=== PATIENT | female | born 1955 ===

== ENCOUNTER 2017-03-03 15:34 | Observation (INO) | payer MEDICARE, MEDICAID ==
--- NOTE | 2017-03-03 16:17 | C.PDOC ---
History Of Present Illness 61F c/o chest pain for the last 3 weeks, both at rest and with exertion. she also feels some pain in her upper back. she has a hx of back problems and was at PT today for her back when she developed pain and they suggested she come here. pmh htn and hlp. Time Seen by Provider: 03/03/17 15:55 Chief Complaint (Nursing): Palpitations Past Medical History Vital Signs: Last Vital Signs Temp 98.2 F 03/03/17 16:14 Pulse 78 03/03/17 16:14 Resp 18 03/03/17 16:14 BP 161/88 H 03/03/17 16:14 Pulse Ox 98 03/03/17 16:18 - Medical History PMH: Anxiety, Depression, HTN, Hypercholesterolemia, Sleep Apnea (USES C PAP) Surgical History: Appendectomy, Cholecystectomy - [facility] Procedures COLONOSCOPY (03/05/15) Family History: States: [place] (father) - Social History Hx Alcohol Use: No Hx Substance Use: No - Immunization History Hx Tetanus Toxoid Vaccination: No Hx Influenza Vaccination: No Hx Pneumococcal Vaccination: No Review Of Systems Except As Marked, All Systems Reviewed And Found Negative. Constitutional: Positive for: Fever (subjective 2 days ago ). Negative for: Malaise Cardiovascular: Positive for: Chest Pain, Palpitations, Light Headedness Respiratory: Negative for: Cough, Shortness of Breath, Hemoptysis Gastrointestinal: Negative for: Nausea, Vomiting, Abdominal Pain Musculoskeletal: Positive for: Back Pain Neurological: Negative for: Weakness, Numbness, Headache Physical Exam - Physical Exam Appears: Well, Non-toxic, No Acute Distress Skin: Warm, Dry Head: Atraumatic Eye(s): bilateral: PERRL Oral Mucosa: Moist Neck: Normal ROM Chest: Tenderness (reproducible pain w palp over lower sternum) Cardiovascular: Rhythm Regular, No Murmur Respiratory: No Decreased Breath Sounds, No Accessory Muscle Use, No Rales, No Rhonchi, No Wheezing Gastrointestinal/Abdominal: Soft, No Tenderness Back: Paraspinal Tenderness (thoracic) Extremity: No Calf Tenderness, No Swelling Pulses: Left Radial: Normal, Right Radial: Normal Neurological/Psych: Oriented x3, Normal Motor, Normal Sensation, Other (no focal deficits) ED Course And Treatment - Laboratory Results Result Diagrams: 03/03/17 16:25 03/03/17 16:25 O2 Sat by Pulse Oximetry: 98 Medical Decision Making Medical Decision Making: ecg- nsr 79, nl axis, nl int, no acute ischemia HISTORY: cp COMPARISON: Images from chest x-ray performed 06/12/12 TECHNIQUE: Chest PA and lateral FINDINGS: Emanation limited by habitus. LUNGS: No focal consolidation. Please note that chest x-ray has limited sensitivity for the detection of pulmonary masses. PLEURA: No significant pleural effusion identified. No definite pneumothorax . CARDIOVASCULAR: The cardiomediastinal silhouette appears within normal limits of size. OSSEOUS STRUCTURES: Mild degenerative changes of the spine. VISUALIZED UPPER ABDOMEN: Right upper quadrant surgical clips. OTHER FINDINGS: None. IMPRESSION: No focal consolidation, significant pleural effusion, or definite pneumothorax identified. Disposition - Disposition Disposition: HOSPITALIZED Disposition Time: 17:47 Condition: STABLE - Clinical Impression Clinical Impression: Palpitations, Chest pain
[2017-03-03 16:31] LABS: BASO % 0.4 % (0.0-2.0); EOS # 0.2 K/uL (0.0-0.7); EOS % 2.4 % (0.0-4.0); HEMATOCRIT 39.3 % (34.0-47.0); LYMPH # 1.6 K/uL (1.0-4.3); MEAN CELL VOLUME 91.1 fL (81.0-99.0); MEAN CORPUSCULAR HEMOGLOBIN 30.3 pg (27.0-31.0); MEAN CORPUSCULAR HGB CONC 33.3 g/dL (33.0-37.0); MEAN PLATELET VOLUME 8.6 fL (7.2-11.7); MONO # 0.7 K/uL (0.0-0.8); MONO % 11.1 % (0.0-10.0); RED CELL DISTRIBUTION WIDTH 12.5 % (11.5-14.5); WHITE BLOOD COUNT 6.5 K/uL (4.8-10.8)
[2017-03-03 16:37] LABS: CHLORIDE 101 mmol/L (98-107); SODIUM 138 mmol/L (132-148)
[2017-03-03 16:39] LABS: GFR AFRICAN-AMERICAN > 60
[2017-03-03 16:40] LABS: ALB/GLOB RATIO 1.2 (1.0-2.1); ALKALINE PHOSPHATASE 97 U/L (38-126); ALT/SGPT 31 U/L (9-52); AST/SGOT 26 U/L (14-36); BILIRUBIN,TOTAL 0.7 mg/dL (0.2-1.3); BLOOD UREA NITROGEN 10 mg/dL (7-17); CALCIUM 9.1 mg/dl (8.6-10.4); CARBON DIOXIDE 29 mmol/L (22-30); GLUCOSE,RANDOM 110 mg/dL (65-105); TOTAL PROTEIN 7.6 g/dL (6.3-8.3)
--- NOTE | 2017-03-03 16:40 | RAD ---
HISTORY: cp COMPARISON: Images from chest x-ray performed 06/12/12 TECHNIQUE: Chest PA and lateral FINDINGS: Emanation limited by habitus. LUNGS: No focal consolidation. Please note that chest x-ray has limited sensitivity for the detection of pulmonary masses. PLEURA: No significant pleural effusion identified. No definite pneumothorax . CARDIOVASCULAR: The cardiomediastinal silhouette appears within normal limits of size. OSSEOUS STRUCTURES: Mild degenerative changes of the spine. VISUALIZED UPPER ABDOMEN: Right upper quadrant surgical clips. OTHER FINDINGS: None. IMPRESSION: No focal consolidation, significant pleural effusion, or definite pneumothorax identified.
--- NOTE | 2017-03-03 18:46 | CP.PCM.HP ---
<Jose Biggs - Last Filed: 03/03/17 18:56> History of Present Illness - History of Present Illness History of Present Illness: This is a 61 yo female with pmh htn, depression, allergies, vertigo presenting with cp x 3 days. It started 3 days ago, sub sternal, no radiation. Pt is not a very good historian and could not say what she was doing at the time. It occurred again day prior to eval as she was walking to supermarket. She had some dizziness/sob. It went away after 3 mins. Today it started again, cannot say when. Happened before 3 months ago with some left arm numbness. Nothing better or worse. Took vitamin c at home along with bp meds. No trauma or fall. Reproducible to palpation PMH: HTN, depression, allergies, vertigo PSH: appy, cholecystectomy Allergies: NKDA FH: Non contributory Social: denies smoking, drinking, drugs. Born in . Present on Admission - Present on Admission Any Indicators Present on Admission: No History of DVT/PE: No History of Uncontrolled Diabetes: No Urinary Catheter: No Decubitus Ulcer Present: No Review of Systems - Review of Systems All systems: reviewed and no additional remarkable complaints except Review of Systems: negative except as stated in hpi Past Patient History - Infectious Disease Hx of Infectious Diseases: None - Tetanus Immunizations Tetanus Immunization: Unknown - Past Medical History & Family History Past Medical History?: Yes Past Family History: Reviewed and not pertinent - Past Social History Smoking Status: Never Smoked Chewing Tobacco Use: No Cigar Use: No Alcohol: None Drugs: Denies Home Situation {Lives}: Alone Domestic Violence: Negative - CARDIAC Hx Hypercholesterolemia: Yes Hx Hypertension: Yes - PULMONARY Hx Sleep Apnea: Yes (USES C PAP) - NEUROLOGICAL Hx Neurological Disorder: Yes Hx Vertigo: Yes - HEENT Hx HEENT Problems: No - RENAL Hx Chronic Kidney Disease: No - ENDOCRINE/METABOLIC Hx Endocrine Disorders: No - HEMATOLOGICAL/ONCOLOGICAL Hx Blood Disorders: No - INTEGUMENTARY Hx Dermatological Problems: No - MUSCULOSKELETAL/RHEUMATOLOGICAL Hx Musculoskeletal Disorders: Yes Hx Osteoarthritis: Yes - GASTROINTESTINAL Hx Gastrointestinal Disorders: No - GENITOURINARY/GYNECOLOGICAL Hx Genitourinary Disorders: No - PSYCHIATRIC Hx Anxiety: Yes Hx Depression: Yes Hx Substance Use: No - SURGICAL HISTORY Hx Appendectomy: Yes Hx Cholecystectomy: Yes - ANESTHESIA Hx Anesthesia: Yes Hx Anesthesia Reactions: No Hx Malignant Hyperthermia: No Meds Allergies/Adverse Reactions: Allergies Allergy/AdvReac Type Severity Reaction Status Date / Time No Known Allergies Allergy Verified 03/05/15 09:16 Physical Exam - Constitutional Appears: Non-toxic, No Acute Distress - Head Exam Head Exam: ATRAUMATIC, NORMAL INSPECTION, NORMOCEPHALIC - Eye Exam Eye Exam: EOMI - ENT Exam ENT Exam: Mucous Membranes Moist - Neck Exam Neck exam: Positive for: Normal Inspection - Respiratory Exam Respiratory Exam: Clear to Auscultation Bilateral, NORMAL BREATHING PATTERN - Cardiovascular Exam Cardiovascular Exam: +S1, +S2 Additional comments: cp reproducible to palpation - GI/Abdominal Exam GI & Abdominal Exam: Normal Bowel Sounds, Soft. absent: Tenderness - Extremities Exam Extremities exam: Positive for: normal inspection - Back Exam Back exam: NORMAL INSPECTION - Neurological Exam Neurological exam: Alert, Oriented x3 - Psychiatric Exam Psychiatric exam: Normal Affect, Normal Mood - Skin Skin Exam: Dry, Intact, Normal Color, Warm Results - Vital Signs Recent Vital Signs: Last Vital Signs Temp 98.2 F 03/03/17 16:14 Pulse 88 03/03/17 17:56 Resp 16 03/03/17 17:56 BP 155/82 H 03/03/17 17:56 Pulse Ox 99 03/03/17 17:56 - Labs Result Diagrams: 03/03/17 16:25 03/03/17 16:25 Assessment & Plan - Assessment and Plan (Free Text) Assessment: This is a 61 yo female with pmh htn, allergies, vertigo, depression, presenting cp x 3 days 1. cp r/o acs -ekg shows nsr -1st trop negative -repeat trops -likely msk -will give motrin -f/u cta -elevated d dimer -give amlodipine daily -valsartan hctz daily -hgb a1c -lipid profile -continue home statin 2. hx of allergies -continue home fluticasone 3. hx of htn -continue norvasc -continue valsartan/hctz 4. hx of depression -continue aripiprazole -continue fluoxetine -continue doxepin 5. GI/dvt ppx -protonix daily -cardiac diet -heparin sc discussed with dr. sepluveda <Jose Sepulveda - Last Filed: 03/04/17 15:39> Results - Vital Signs Recent Vital Signs: Last Vital Signs Temp 98.8 F 03/04/17 07:25 Pulse 85 03/04/17 07:30 Resp 18 03/04/17 07:25 BP 137/84 03/04/17 07:25 Pulse Ox 97 03/04/17 07:25 - Labs Result Diagrams: 03/04/17 06:23 03/04/17 06:23 Labs: Laboratory Results - last 24 hr 03/03/17 03/03/17 03/04/17 18:48 18:48 00:41 WBC RBC Hgb Hct MCV MCH MCHC RDW Plt Count MPV Neut % (Auto) Lymph % (Auto) [place] % (Auto) Eos % (Auto) Baso % (Auto) Neut # Lymph # [place]christ # Eos # Baso # Sodium Potassium Chloride Carbon Dioxide Anion Gap BUN Creatinine Est GFR ( Amer) Est GFR (Non-Af Amer) Random Glucose Hemoglobin A1c 5.4 Calcium Phosphorus Magnesium Total Bilirubin AST ALT Alkaline Phosphatase Troponin I < 0.0120 Total Protein Albumin Globulin Albumin/Globulin Ratio Triglycerides 79 Cholesterol 159 LDL Cholesterol Direct 56 HDL Cholesterol 64 03/04/17 03/04/17 06:23 06:23 WBC 6.4 RBC 4.53 Hgb 13.9 Hct 41.2 MCV 90.8 MCH 30.6 MCHC 33.7 RDW 12.4 Plt Count 286 MPV 8.6 Neut % (Auto) 64.3 Lymph % (Auto) 23.1 [place]christ % (Auto) 9.7 Eos % (Auto) 2.4 Baso % (Auto) 0.5 Neut # 4.1 Lymph # 1.5 Gilchrist # 0.6 Eos # 0.2 Baso # 0.0 Sodium 137 Potassium 4.0 Chloride 99 Carbon Dioxide 31 H Anion Gap 11 BUN 9 Creatinine 0.7 Est GFR ( Amer) > 60 Est GFR (Non-Af Amer) > 60 Random Glucose 102 Hemoglobin A1c Calcium 9.0 Phosphorus 4.3 Magnesium 2.0 Total Bilirubin 0.9 AST 28 ALT 27 Alkaline Phosphatase 110 Troponin I < 0.0120 Total Protein 7.6 Albumin 4.0 Globulin 3.6 Albumin/Globulin Ratio 1.1 Triglycerides Cholesterol LDL Cholesterol Direct HDL Cholesterol Attending/Attestation - Attestation I have personally seen and examined this patient.: Yes I have fully participated in the care of the patient.: Yes I have reviewed all pertinent clinical information: Yes Notes (Text): 03/04/17 15:38 Patient was seen and examined at bedside with the resident the time of admission Patient complains of chest pain but it is easily reproducible The pain is likely muscular skeletal. However we will admit the patient and do serial troponins to rule out acute coronary syndrome We will also start the patient on Motrin for musculoskeletal pain I discussed the plan of care with the resident and agree with the above history and physical and assessment/plan but the resident
[2017-03-03 18:59] LABS: CHOLESTEROL 159 mg/dL (0-199)
--- NOTE | 2017-03-03 19:32 | CT ---
EXAM: CT Angiography Chest With Intravenous Contrast CLINICAL HISTORY: 61 years old, female; Pain; Chest pain; Type not specified; Additional info: Cp +ddimer TECHNIQUE: Axial computed tomographic angiography images of the chest with intravenous contrast using pulmonary embolism protocol. This CT exam was performed using one or more of the following dose reduction techniques: automated exposure control, adjustment of the mA and/or kV according to patient size, and/or use of iterative reconstruction technique. MIP reconstructed images were created and reviewed. Coronal and sagittal reformatted images were created and reviewed. CONTRAST: 100 mL of VISIPAQUE 320 administered intravenously. EXAM DATE/TIME: Exam ordered 03/03/2017 5:37 PM COMPARISON: No relevant prior studies available. FINDINGS: Pulmonary arteries: The main pulmonary artery measures 3.17 cm which is at the upper limits of normal. No pulmonary embolism. Aorta: No acute findings. No thoracic aortic aneurysm. Lungs: Mosaic perfusion abnormality is noted within the lungs. No mass. Pleural space: Unremarkable. No significant effusion. No pneumothorax. Heart: Unremarkable. No cardiomegaly. No significant pericardial effusion. No evidence of RV dysfunction. Bones/joints: No acute fracture. No dislocation. Soft tissues: Unremarkable. Lymph nodes: Unremarkable. No enlarged lymph nodes. Surgical clips are noted in the gallbladder fossa. The gallbladder has been removed. Scattered colonic diverticula are present. IMPRESSION: 1. No pulmonary embolism 2. Mosaic perfusion abnormality. The finding is nonspecific but can be seen in pulmonary artery hypertension as well as interstitial lung disease or asthma.
[2017-03-04 06:34] LABS: BASO % 0.5 % (0.0-2.0); EOS # 0.2 K/uL (0.0-0.7); EOS % 2.4 % (0.0-4.0); HEMATOCRIT 41.2 % (34.0-47.0); LYMPH # 1.5 K/uL (1.0-4.3); LYMPH % 23.1 % (20.0-40.0); MEAN CELL VOLUME 90.8 fL (81.0-99.0); MEAN CORPUSCULAR HEMOGLOBIN 30.6 pg (27.0-31.0); MEAN CORPUSCULAR HGB CONC 33.7 g/dL (33.0-37.0); MEAN PLATELET VOLUME 8.6 fL (7.2-11.7); MONO # 0.6 K/uL (0.0-0.8); MONO % 9.7 % (0.0-10.0); RED CELL DISTRIBUTION WIDTH 12.4 % (11.5-14.5); WHITE BLOOD COUNT 6.4 K/uL (4.8-10.8)
[2017-03-04 06:40] LABS: CHLORIDE 99 mmol/L (98-107); SODIUM 137 mmol/L (132-148)
[2017-03-04 06:42] LABS: GFR AFRICAN-AMERICAN > 60
[2017-03-04 06:43] LABS: ALB/GLOB RATIO 1.1 (1.0-2.1); ALKALINE PHOSPHATASE 110 U/L (38-126); ALT/SGPT 27 U/L (9-52); AST/SGOT 28 U/L (14-36); BILIRUBIN,TOTAL 0.9 mg/dL (0.2-1.3); BLOOD UREA NITROGEN 9 mg/dL (7-17); CARBON DIOXIDE 31 mmol/L (22-30); GLUCOSE,RANDOM 102 mg/dL (65-105); PHOSPHOROUS 4.3 mg/dL (2.5-4.5); TOTAL PROTEIN 7.6 g/dL (6.3-8.3)
[2017-03-04 07:43] VITALS: PULSE 85
[2017-03-04 08:19] VITALS: BP 137/84; RESP 18; TEMP 98.8; O2SAT 97
[2017-03-04] MEDS ORDERED: ARIPIPRAZOLE 20 MG PO SCH (10:00)
[2017-03-04] MEDS ORDERED: DOXEPIN HCL 25 MG PO SCH (10:00)
[2017-03-04] MEDS ORDERED: Diclofenac Sodium Delayed Release 75 mg EC Tab PO SCH (10:00)
[2017-03-04] MEDS ORDERED: HYDROCHLOROTHIAZIDE PO SCH (10:00)
[2017-03-04] MEDS ORDERED: VALSARTAN PO SCH (10:00)
[2017-03-04] MEDS ORDERED: MECLIZINE HYDROCHLORIDE PO SCH (10:00)
[2017-03-04] MEDS ORDERED: FLUOXETINE HYDROCHLORIDE PO SCH (10:00)
[2017-03-04] MEDS ORDERED: Fluticasone Nasal 50 mcg/Spray NS SCH (10:00)
--- NOTE | 2017-03-04 15:44 | CP.PCM.DIS ---
<Jose Biggs - Last Filed: 03/04/17 15:52> Provider - Provider Date of Admission: 03/03/17 17:48 Attending physician: Jose Sepulveda MD Consults: None Time Spent in preparation of Discharge (in minutes): 45 Hospital Course - Lab Results Lab Results: Most Recent Lab Values WBC 6.4 K/uL (4.8-10.8) 03/04/17 06:23 RBC 4.53 Mil/uL (3.80-5.20) 03/04/17 06:23 Hgb 13.9 g/dL (11.0-16.0) 03/04/17 06:23 Hct 41.2 % (34.0-47.0) 03/04/17 06:23 MCV 90.8 fL (81.0-99.0) 03/04/17 06:23 MCH 30.6 pg (27.0-31.0) 03/04/17 06:23 MCHC 33.7 g/dL (33.0-37.0) 03/04/17 06:23 RDW 12.4 % (11.5-14.5) 03/04/17 06:23 Plt Count 286 K/uL (130-400) 03/04/17 06:23 MPV 8.6 fL (7.2-11.7) 03/04/17 06:23 Neut % (Auto) 64.3 % (50.0-75.0) 03/04/17 06:23 Lymph % (Auto) 23.1 % (20.0-40.0) 03/04/17 06:23 [place] % (Auto) 9.7 % (0.0-10.0) 03/04/17 06:23 Eos % (Auto) 2.4 % (0.0-4.0) 03/04/17 06:23 Baso % (Auto) 0.5 % (0.0-2.0) 03/04/17 06:23 Neut # 4.1 K/uL (1.8-7.0) 03/04/17 06:23 Lymph # 1.5 K/uL (1.0-4.3) 03/04/17 06:23 [place] # 0.6 K/uL (0.0-0.8) 03/04/17 06:23 Eos # 0.2 K/uL (0.0-0.7) 03/04/17 06:23 Baso # 0.0 K/uL (0.0-0.2) 03/04/17 06:23 D-Dimer, Quantitative 347 ng/mlDDU (0-243) H 03/03/17 16:25 Sodium 137 mmol/L (132-148) 03/04/17 06:23 Potassium 4.0 mmol/L (3.6-5.2) 03/04/17 06:23 Chloride 99 mmol/L (98-107) 03/04/17 06:23 Carbon Dioxide 31 mmol/L (22-30) H 03/04/17 06:23 Anion Gap 11 (10-20) 03/04/17 06:23 BUN 9 mg/dL (7-17) 03/04/17 06:23 Creatinine 0.7 MG/DL (0.7-1.2) 03/04/17 06:23 Est GFR ( Amer) > 60 03/04/17 06:23 Est GFR (Non-Af Amer) > 60 03/04/17 06:23 Random Glucose 102 mg/dL (65-105) 03/04/17 06:23 Hemoglobin A1c 5.4 % (4.2-6.5) 03/03/17 18:48 Calcium 9.0 mg/dl (8.6-10.4) 03/04/17 06:23 Phosphorus 4.3 mg/dL (2.5-4.5) 03/04/17 06:23 Magnesium 2.0 mg/dL (1.6-2.3) 03/04/17 06:23 Total Bilirubin 0.9 mg/dL (0.2-1.3) 03/04/17 06:23 AST 28 U/L (14-36) 03/04/17 06:23 ALT 27 U/L (9-52) 03/04/17 06:23 Alkaline Phosphatase 110 U/L (38-126) 03/04/17 06:23 Troponin I < 0.0120 ng/mL (0.00-0.120) 03/04/17 06:23 Total Protein 7.6 g/dL (6.3-8.3) 03/04/17 06:23 Albumin 4.0 g/dL (3.5-5.0) 03/04/17 06:23 Globulin 3.6 gm/dL (2.2-3.9) 03/04/17 06:23 Albumin/Globulin Ratio 1.1 (1.0-2.1) 03/04/17 06:23 Triglycerides 79 mg/dL (0-149) 03/03/17 18:48 Cholesterol 159 mg/dL (0-199) 03/03/17 18:48 LDL Cholesterol Direct 56 mg/dL (0-129) 03/03/17 18:48 HDL Cholesterol 64 mg/dL (30-70) 03/03/17 18:48 - Hospital Course Hospital Course: Attending: Derick Aquino Admit date - 03-03-17 DC date- 03-04-17 Discharge dx 1. Chest pain 2. MSK chest pain 3. Depression 4. allergies 5. htn Discharge condition Stable Procedures none No complications during hospital stay Consults: none HPI: see h/p Lab: see lab data section Hospital course This is a 61 yo female with pmh htn, depression, allergies, vertigo presenting with cp x 3 days. It started 3 days ago, sub sternal, no radiation. Pt is not a very good historian and could not say what she was doing at the time. It occurred again day prior to eval as she was walking to [employer].. She had some dizziness/sob. It went away after 3 mins. Today it started again, cannot say when. Happened before 3 months ago with some left arm numbness. Nothing better or worse. Took vitamin c at home along with bp meds. No trauma or fall. Reproducible to palpation. Pt's trops were negative x 3. EKG showed normal sinus rhythm. CTA was negative for PE. Pt was restarted on home blood pressure and depression meds as well as given heparin for dvt ppx and protonix for gi ppx. Vitals remained stable and her hospital course was uneventful. On day of discharge, pt's chest pain was improved. She denied fevers, chills, vomiting, diarrhea, syncope. Pt needs outpatient stress test. Discharge instructions Please return if condition worsens. Will need outpatient stress test. Resume all home meds. F/u with PMD and photographer helper. Discharge meds 1. meclizine 2. ativan 3. claritin 4. norvasc 5. abilify 6. vitamin d 7. diclofenac 8. doxepin 9. fluoxetine 10. fluticasone 11. gabapentin 12. pataday 13. omeprazole 14. valsartan/hctz - Date & Time of H&P Date of H&P: 03/03/17 Time of H&P: 18:42 Discharge Exam - Head Exam Head Exam: ATRAUMATIC, NORMAL INSPECTION, NORMOCEPHALIC - Eye Exam Eye Exam: EOMI - ENT Exam ENT Exam: Mucous Membranes Moist - Neck Exam Neck exam: Full Rom, Normal Inspection - Respiratory Exam Respiratory Exam: NORMAL BREATHING PATTERN, UNREMARKABLE - Cardiovascular Exam Cardiovascular Exam: +S1, +S2 Additional comments: Chest wall tender to palpation - GI/Abdominal Exam GI & Abdominal Exam: Normal Bowel Sounds - Extremities Exam Extremities exam: full ROM, normal inspection - Back Exam Back exam: NORMAL INSPECTION - Neurological Exam Neurological exam: Alert, CN II-XII Intact, Oriented x3 - Psychiatric Exam Psychiatric exam: Normal Affect, Normal Mood - Skin Skin Exam: Dry, Intact, Normal Color, Warm Discharge Plan - Follow Up Plan Condition: STABLE Disposition: HOME/ ROUTINE Instructions: Chest Pain (DC), Heart Healthy Diet (DC) Additional Instructions: pt is medically stable for discharge. please return if condition worsens. should have outpatient stress test and f/u with PMD. <Jose Sepulveda - Last Filed: 03/14/17 13:25> Provider - Provider Date of Admission: 03/03/17 17:48 Attending physician: Jose Sepulveda MD Hospital Course - Lab Results Lab Results: Most Recent Lab Values WBC 6.4 K/uL (4.8-10.8) 03/04/17 06:23 RBC 4.53 Mil/uL (3.80-5.20) 03/04/17 06:23 Hgb 13.9 g/dL (11.0-16.0) 03/04/17 06:23 Hct 41.2 % (34.0-47.0) 03/04/17 06:23 MCV 90.8 fL (81.0-99.0) 03/04/17 06:23 MCH 30.6 pg (27.0-31.0) 03/04/17 06:23 MCHC 33.7 g/dL (33.0-37.0) 03/04/17 06:23 RDW 12.4 % (11.5-14.5) 03/04/17 06:23 Plt Count 286 K/uL (130-400) 03/04/17 06:23 MPV 8.6 fL (7.2-11.7) 03/04/17 06:23 Neut % (Auto) 64.3 % (50.0-75.0) 03/04/17 06:23 Lymph % (Auto) 23.1 % (20.0-40.0) 03/04/17 06:23 [place] % (Auto) 9.7 % (0.0-10.0) 03/04/17 06:23 Eos % (Auto) 2.4 % (0.0-4.0) 03/04/17 06:23 Baso % (Auto) 0.5 % (0.0-2.0) 03/04/17 06:23 Neut # 4.1 K/uL (1.8-7.0) 03/04/17 06:23 Lymph # 1.5 K/uL (1.0-4.3) 03/04/17 06:23 [place] # 0.6 K/uL (0.0-0.8) 03/04/17 06:23 Eos # 0.2 K/uL (0.0-0.7) 03/04/17 06:23 Baso # 0.0 K/uL (0.0-0.2) 03/04/17 06:23 D-Dimer, Quantitative 347 ng/mlDDU (0-243) H 03/03/17 16:25 Sodium 137 mmol/L (132-148) 03/04/17 06:23 Potassium 4.0 mmol/L (3.6-5.2) 03/04/17 06:23 Chloride 99 mmol/L (98-107) 03/04/17 06:23 Carbon Dioxide 31 mmol/L (22-30) H 03/04/17 06:23 Anion Gap 11 (10-20) 03/04/17 06:23 BUN 9 mg/dL (7-17) 03/04/17 06:23 Creatinine 0.7 MG/DL (0.7-1.2) 03/04/17 06:23 Est GFR ( Amer) > 60 03/04/17 06:23 Est GFR (Non-Af Amer) > 60 03/04/17 06:23 Random Glucose 102 mg/dL (65-105) 03/04/17 06:23 Hemoglobin A1c 5.4 % (4.2-6.5) 03/03/17 18:48 Calcium 9.0 mg/dl (8.6-10.4) 03/04/17 06:23 Phosphorus 4.3 mg/dL (2.5-4.5) 03/04/17 06:23 Magnesium 2.0 mg/dL (1.6-2.3) 03/04/17 06:23 Total Bilirubin 0.9 mg/dL (0.2-1.3) 03/04/17 06:23 AST 28 U/L (14-36) 03/04/17 06:23 ALT 27 U/L (9-52) 03/04/17 06:23 Alkaline Phosphatase 110 U/L (38-126) 03/04/17 06:23 Troponin I < 0.0120 ng/mL (0.00-0.120) 03/04/17 06:23 Total Protein 7.6 g/dL (6.3-8.3) 03/04/17 06:23 Albumin 4.0 g/dL (3.5-5.0) 03/04/17 06:23 Globulin 3.6 gm/dL (2.2-3.9) 03/04/17 06:23 Albumin/Globulin Ratio 1.1 (1.0-2.1) 03/04/17 06:23 Triglycerides 79 mg/dL (0-149) 03/03/17 18:48 Cholesterol 159 mg/dL (0-199) 03/03/17 18:48 LDL Cholesterol Direct 56 mg/dL (0-129) 03/03/17 18:48 HDL Cholesterol 64 mg/dL (30-70) 03/03/17 18:48 Attending/Attestation - Attestation I have personally seen and examined this patient.: Yes I have fully participated in the care of the patient.: Yes I have reviewed all pertinent clinical information, including history, physical exam and plan: Yes Notes (Text): 03/14/17 13:23 Patient was seen and examined at bedside with the resident. This a late computer entry Patient is clear for discharge She will follow-up with the PMD as outpatient I discussed the discharge plan with the patient and she verbalized understanding I agree with the above discharge note by the resident.
[2017-03-05] MEDS ORDERED: Fluticasone Nasal 50 mcg/Spray NS SCH (08:00)
--- NOTE | 2017-03-07 11:38 | CARD ---
APPROVED REPORT EKG Measurement Heart [id number] CT [id number] <Conclusion> Normal sinus rhythm Normal ECG
== END 2017-03-04 14:28 | disposition home or self-care (01) ==
LOC: C.ER 15:34 → C.9E 17:48 → C.6T 20:27
PROVIDERS: ADMIT Internal Medicine; ATTEND Internal Medicine
DX: R07.9 Chest pain, unspecified (principal); M54.6 Pain in thoracic spine; R00.2 Palpitations; I10 Essential (primary) hypertension; F32.9 Major depressive disorder, single episode, unspecified
CPT/HCPCS: 36415; 71020; 71275; 80053; 80061; 83036; 83735; 84100; 84484; 85025; 85378; 96374; 99285; C9113; G0378; J1644; J1885

== ENCOUNTER 2017-05-05 06:14 | Day surgery (SDC) | payer MEDICARE, MEDICAID ==
[2017-05-04 10:46] VITALS: BMI 32.5
[2017-05-05 06:54] LABS: BASO # 0.1 K/uL (0.0-0.2); BASO % 1.1 % (0.0-2.0); EOS # 0.1 K/uL (0.0-0.7); EOS % 0.7 % (0.0-4.0); HEMOGLOBIN 12.9 g/dL (11.0-16.0); LYMPH # 2.5 K/uL (1.0-4.3); LYMPH % 27.9 % (20.0-40.0); MEAN CELL VOLUME 89.9 fL (81.0-99.0); MEAN CORPUSCULAR HEMOGLOBIN 30.4 pg (27.0-31.0); MEAN CORPUSCULAR HGB CONC 33.8 g/dL (33.0-37.0); MEAN PLATELET VOLUME 8.7 fL (7.2-11.7); MONO # 0.5 K/uL (0.0-0.8); MONO % 5.7 % (0.0-10.0); NEUT # 5.9 K/uL (1.8-7.0); NEUT % 64.6 % (50.0-75.0); RBC 4.25 Mil/uL (3.80-5.20); RED CELL DISTRIBUTION WIDTH 12.4 % (11.5-14.5)
[2017-05-05 07:04] LABS: GFR AFRICAN-AMERICAN > 60; GFR NON-AFRICAN AMERICAN 50; INR 1.1; PROTHROMBIN TIME 12.5 SECONDS (9.7-12.2)
[2017-05-05 07:05] LABS: BLOOD UREA NITROGEN 16 mg/dL (7-17); CALCIUM 9.6 mg/dl (8.6-10.4)
[2017-05-05] MEDS ORDERED: Potassium Chloride 20 mEq ER Tab PO ONE (07:35)
[2017-05-05] MEDS ORDERED: Midazolam 2 MG/2 ML VIAL ONE ×2 (09:31→09:56)
[2017-05-05] MEDS ORDERED: Iohexol 350mgl/ml 50 ML ONE (10:05)
[2017-05-05] MEDS ORDERED: Sodium Chloride 0.9% 500 ML IV SCH (13:14)
[2017-05-05] MEDS ORDERED: Sodium Chloride 0.9% 1,000 ML IV ONE (13:45)
[2017-05-05 14:54] VITALS: PULSE 77; RESP 18; TEMP 97
[2017-05-05 15:38] VITALS: BP 100/70; O2SAT 100
--- NOTE | 2017-05-06 18:11 | CARDCATH ---
PROCEDURE DATE: 05/05/2017 PROCEDURES PERFORMED: 1. Left heart catheterization. 2. Coronary angiography. 3. Left ventriculography. CLINICAL INDICATIONS: 1. Unstable angina. 2. Dyspnea on exertion. 3. Abnormal stress test. HISTORY: The patient is a 61-year-old female with past medical history of hypertension and hypercholesterolemia, who presents with dyspnea on exertion. Nuclear perfusion imaging was abnormal. After obtaining informed consent, the right wrist was prepped and draped in usual sterile fashion. Right renal artery was accessed. Coronary angiography and left ventriculography were then performed. At the conclusion of the procedure, Thera-Band used to achieve hemostasis. FINDINGS: Hemodynamics shows no gradient across the aortic valve and left ventricular end-diastolic pressure is normal. Left main normal. Left anterior descending artery, luminal irregularities. Left circumflex artery, luminal irregularities. The second obtuse marginal artery has a 60% stenosis. Right coronary artery present *------* in the right sinus of Valsalva. This is the right dominant circulation. There are minor luminal irregularities of vessel. Left ventricle; normal left ventricular systolic function. Left ventricular ejection fraction is 55-60%. There is no mitral regurgitation or aortic stenosis. CONCLUSION: Single-vessel coronary artery disease of a small second obtuse marginal artery, otherwise normal left ventricular function. PLAN: Medical therapy. Dejon Arora MD
== END 2017-05-05 16:50 | disposition home or self-care (01) ==
LOC: C.CATHLAB 06:14
PROVIDERS: ATTEND Internal Medicine Cardiovascular Disease
DX: I25.110 Atherosclerotic heart disease of native coronary artery with unstable angina pectoris (principal); R94.39 Abnormal result of other cardiovascular function study; R06.09 Other forms of dyspnea; I10 Essential (primary) hypertension; E78.00 Pure hypercholesterolemia, unspecified

== ENCOUNTER 2018-12-11 15:45 | Observation (INO) | payer OTHER ==
[2018-12-11 15:45] VITALS: BMI 32.5
[2018-12-11 17:21] LABS: BASO # 0.1 K/uL (0.0-0.2); BASO % 0.8 % (0.0-2.0); EOS # 0.1 K/uL (0.0-0.7); EOS % 1.2 % (0.0-4.0); HEMOGLOBIN 13.9 g/dL (11.0-16.0); LYMPH # 2.5 K/uL (1.0-4.3); LYMPH % 36.5 % (20.0-40.0); MEAN CELL VOLUME 92.6 fL (81.0-99.0); MEAN CORPUSCULAR HEMOGLOBIN 30.7 pg (27.0-31.0); MEAN CORPUSCULAR HGB CONC 33.2 g/dL (33.0-37.0); MEAN PLATELET VOLUME 8.6 fL (7.2-11.7); MONO # 0.4 K/uL (0.0-0.8); MONO % 6.1 % (0.0-10.0); NEUT # 3.8 K/uL (1.8-7.0); NEUT % 55.4 % (50.0-75.0); RBC 4.53 Mil/uL (3.80-5.20); RED CELL DISTRIBUTION WIDTH 12.6 % (11.5-14.5); WHITE BLOOD COUNT 6.8 K/uL (4.8-10.8)
[2018-12-11 17:36] LABS: SQUAMOUS EPITHIAL < 1 /hpf (0-5); URINE BILIRUBIN NEGATIVE (NEGATIVE); URINE BLOOD NEGATIVE (NEGATIVE); URINE CLARITY Clear (Clear); URINE COLOR Straw (YELLOW); URINE GLUCOSE (UA) NORMAL (Normal); URINE LEUKOCYTE ESTERASE NEG Leu/uL (Negative); URINE PROTEIN NEGATIVE (NEGATIVE); URINE UROBILINOGEN NORMAL mg/dL (0.2-1.0)
--- NOTE | 2018-12-11 17:41 | RAD ---
Date of service: 12/11/2018 HISTORY: Chest pain. COMPARISON: 12/22/2017. TECHNIQUE: Chest PA and lateral FINDINGS: LUNGS: No active pulmonary disease. PLEURA: No significant pleural effusion identified. No pneumothorax apparent. CARDIOVASCULAR: No aortic atherosclerotic calcification present. No radiographic findings to suggest acute or significant cardiovascular disease. OSSEOUS STRUCTURES: No significant abnormalities. VISUALIZED UPPER ABDOMEN: Normal. OTHER FINDINGS: None. IMPRESSION: No active disease. No significant interval change compared to the prior examination(s).
[2018-12-11 17:47] LABS: ALB/GLOB RATIO 1.2 (1.0-2.1); ALBUMIN 4.8 g/dL (3.5-5.0); BLOOD UREA NITROGEN 9 mg/dL (7-17); CALCIUM 9.6 mg/dl (8.6-10.4); GFR NON-AFRICAN AMERICAN > 60; LIPASE 37 U/L (23-300)
[2018-12-11 17:48] LABS: ALT/SGPT 18 U/L (9-52); AST/SGOT 44 U/L (14-36)
[2018-12-11 17:57] LABS: B-TYPE NATRIURETIC PEPTIDE 62.5 pg/mL (0-900)
--- NOTE | 2018-12-11 18:20 | C.PDOC ---
History Of Present Illness 63 y/o female, w/ PMhx of HTN, depression, and seasonal allergies, presents to the ER for evaluation of elevated blood pressure level which has been present for the past 10 days. Patient reports occipital headache, dizziness, SOB, pa lpitations, nausea, and abdominal pain. Patient reports that the symptoms are intermittent but became worse last night with new onset of chest pain. She states that she took Amlodipine 5 mg and Lisinopril 5 mg in the morning. She is compliant with meds. Denies having fever,chills, and vomiting.Patient reports seeing her PMD in September 2018 and has cardiology appointment in January 2019. Time Seen by Provider: 12/11/18 16:17 Chief Complaint (Nursing): Abdominal Pain History Per: Patient History/Exam Limitations: no limitations Onset/Duration Of Symptoms: Days Current Symptoms Are (Timing): Still Present Severity: Moderate Past Medical History Reviewed: Historical Data, Nursing Documentation, Vital Signs Vital Signs: Last Vital Signs Temp 97.7 F 12/11/18 15:49 Pulse 70 12/11/18 15:49 Resp 18 12/11/18 15:49 BP 151/82 H 12/11/18 15:49 Pulse Ox 100 12/11/18 15:49 - Medical History PMH: Anxiety, Asthma, Depression, Gall Bladder Disease, HTN, Hypercholestero lemia, Sleep Apnea (USES C PAP) Denies: Chronic Kidney Disease Surgical History: Appendectomy, Cholecystectomy - [facility] Procedures COLONOSCOPY (03/05/15) Family History: States: [place] (father) - Social History Hx Alcohol Use: No Hx Substance Use: No - Immunization History Hx Tetanus Toxoid Vaccination: No Hx Influenza Vaccination: No Hx Pneumococcal Vaccination: No Review Of Systems Except As Marked, All Systems Reviewed And Found Negative. Constitutional: Negative for: Fever, Chills Cardiovascular: Positive for: Chest Pain, Palpitations Respiratory: Positive for: Shortness of Breath Gastrointestinal: Positive for: Nausea, Abdominal Pain. Negative for: Vomiting Neurological: Positive for: Headache, Dizziness Physical Exam - Physical Exam Appears: Non-toxic, No Acute Distress Skin: Normal Color, Warm, Dry Head: Atraumatic, Normacephalic Eye(s): bilateral: Normal Inspection Nose: Normal Oral Mucosa: Moist Neck: Supple Chest: Symmetrical Cardiovascular: Rhythm Regular Respiratory: Normal Breath Sounds, No Rales, No Rhonchi, No Wheezing Gastrointestinal/Abdominal: Soft, Tenderness (epigastric tenderness), No Guarding, No Rebound Back: No CVA Tenderness Extremity: Normal ROM, Other (no pitting edema) Neurological/Psych: Oriented x3, Normal Speech ED Course And Treatment - Laboratory Results Result Diagrams: 12/11/18 17:16 12/11/18 17:16 Lab Results: Troponin I < 0.0120 ng/mL (0.00-0.120) 12/11/18 17:16 NT-Pro-B Natriuret Pep 62.5 pg/mL (0-900) 12/11/18 17:16 Total Bilirubin 0.8 mg/dL (0.2-1.3) 12/11/18 17:16 AST 44 U/L (14-36) H 12/11/18 17:16 ALT 18 U/L (9-52) 12/11/18 17:16 Alkaline Phosphatase 94 U/L (38-126) 12/11/18 17:16 Total Protein 8.7 g/dL (6.3-8.3) H 12/11/18 17:16 Albumin 4.8 g/dL (3.5-5.0) 12/11/18 17:16 Globulin 3.9 gm/dL (2.2-3.9) 12/11/18 17:16 Albumin/Globulin Ratio 1.2 (1.0-2.1) 12/11/18 17:16 Lipase 37 U/L (23-300) 12/11/18 17:16 Urine Color Straw (YELLOW) 12/11/18 17:16 Urine Clarity Clear (Clear) 12/11/18 17:16 Urine pH 7.0 (5.0-8.0) 12/11/18 17:16 Ur Specific [place] 1.005 (1.003-1.030) 12/11/18 17:16 Urine Protein Negative mg/dL (NEGATIVE) 12/11/18 17:16 Urine Glucose (UA) Normal mg/dL (Normal) 12/11/18 17:16 Urine Ketones Negative mg/dL (NEGATIVE) 12/11/18 17:16 Urine Blood Negative (NEGATIVE) 12/11/18 17:16 Urine Nitrate Negative (NEGATIVE) 12/11/18 17:16 Urine Bilirubin Negative (NEGATIVE) 12/11/18 17:16 Urine Urobilinogen Normal mg/dL (0.2-1.0) 12/11/18 17:16 Ur Leukocyte Esterase Neg Estefany/uL (Negative) 12/11/18 17:16 Urine RBC (Auto) < 1 /hpf (0-3) 12/11/18 17:16 Ur Squamous Epith Cells < 1 /hpf (0-5) 12/11/18 17:16 ECG: Interpreted By Me, Viewed By Me ECG Rhythm: Sinus Rhythm ECG Interpretation: No Acute Changes Rate From EC O2 Sat by Pulse Oximetry: 100 (RA) Pulse Ox Interpretation: Normal Progress Note: Labs includig cardiac enzymes, CXR, and EKG. CXR shows no acute disease. Trop negative. Hyponatremic. D/W Dr. Schrader who accepted admission for observation Disposition Discussed With : Eduardo Schrader Doctor Will See Patient In The: Hospital Counseled Patient/Family Regarding: Studies Performed, Diagnosis, Need For Followup, Rx Given - Disposition Disposition: HOSPITALIZED Disposition Time: 19:20 Condition: STABLE Forms: MobiTX (French) - Clinical Impression Clinical Impression: Hyponatremia, HTN (hypertension), Chest pain - PA / A AUXILIARY / Resident Statement MD/DO has reviewed & agrees with the documentation as recorded. - Scribe Statement The provider has reviewed the documentation as recorded by the Fritz Rose Provider Attestation All medical record entries made by the Scribe were at my direction and personally dictated by me. I have reviewed the chart and agree that the record accurately reflects my personal performance of the history, physical exam, medical decision making, and the department course for this patient. I have also personally directed, reviewed, and agree with the discharge instructions and disposition. Decision To Admit - Pt Status Changed To: Hospital Disposition Of: Observation - . Bed Request Type: Telemetry Admitting Physician: Eduardo Schrader Patient Diagnosis: Chest pain, Hyponatremia, HTN (hypertension)
--- NOTE | 2018-12-11 20:11 | CP.PCM.HP ---
<Graciela Bardales - Last Filed: 12/11/18 23:50> History of Present Illness - History of Present Illness History of Present Illness: PGY-1 Graciela Bardales D.O. H&P for Dr. 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 Patient states that she started to feel the chest pain gradually when she was sitting down approximately 10 days ago. She says the pain feels like a pressure on the left side of her chest and radiates up to her R neck/jaw. She says the pain is fairly constant and is associated with palpitations. Patient says she felt anxious yesterday and was taking her BP at home. She became concerned that she was getting different values and feels that it is not well controlled. She reports SBP ranged from 100-150. She also complains of DANGELO that started 10 days ago as well. DANGELO is located in the frontal and occipital regions bilaterally. She has taken Advil which relieves the DANGELO and chest pain somewhat. She also experienced nausea with mild abdominal pain today but no vomiting. She says she has been drinking and eating normally. She endorses urinary frequency but denies dysuria or polydipsia. Patient says she has had episodes like this before. 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 PMH: CAD, HTN, HLD, depression, anxiety, allergic rhinitis, vertigo, peripheral neuropathy, osteoarthritis, L sciatica PSH: appendectomy, cholecystectomy, cardiac cath 04/2017 (EF 55-60%, single- vessel CAD of sm 2nd obtuse marginal artery), colonoscopy 2014 Meds: Amlodipine 5 mg PO daily, Lisinopril 5 mg PO daily, Atorvastatin 20 mg PO QHS, Flonase daily, Omeprazole 40 mg PO daily, Gabapentin 400 mg PO TID, Diclofenac 50 mg PO daily, Ativan 1 mg PO QHS, Vit D All: NKDA FH: mother- HTN, pacemaker, father ( 54)- [place], HTN SH: lives with mother, has 2 adult children, on disability for "arthritis", denies alcohol, tobacco, and illicit drug use PMD: Aram Cardio: Ulysses Present on Admission - Present on Admission Any Indicators Present on Admission: No History of DVT/PE: No History of Uncontrolled Diabetes: No Urinary Catheter: No Decubitus Ulcer Present: No History Surgical Site Infection Following: None Review of Systems - Constitutional Constitutional: Headache. absent: Chills, Fever - EENT Eyes: absent: Change in Vision Ears: absent: Decreased Hearing Nose/Mouth/Throat: absent: Nasal Congestion, Sore Throat - Cardiovascular Cardiovascular: As Per HPI, Chest Pain, Chest Pain at Rest, Pain Radiating to Arm/Neck/Jaw, Palpitations. absent: Diaphoresis, Dyspnea, Lightheadedness, Pedal Edema, Syncope - Respiratory Respiratory: absent: Cough, Dyspnea - Gastrointestinal Gastrointestinal: Abdominal Pain, Heartburn, Nausea. absent: Constipation, Diarrhea, Vomiting - Genitourinary Genitourinary: Urinary Frequency. absent: Dysuria, Hematuria - Reproductive: Female Reproductive:Female: Post Menopausal - Musculoskeletal Musculoskeletal: As Per HPI, Arthralgias, Back Pain, Neck Pain, Numbness, Tingling - Integumentary Integumentary: absent: Lesions, Rash - Neurological Neurological: absent: Dizziness, Focal Weakness, Syncope, Weakness - Psychiatric Psychiatric: Anxiety - Endocrine Endocrine: Palpitations, Polyuria. absent: Polydipsia, Polyphagia - Hematologic/Lymphatic Hematologic: absent: Easy Bleeding, Easy Bruising, Lymphadenopathy Past Patient History - Infectious Disease Hx of Infectious Diseases: None - Tetanus Immunizations Tetanus Immunization: Unknown - Past Medical History & Family History Past Medical History?: Yes Pertinent Family History: father- [place], HTN, mother- HTN, pacemaker - Past Social History Smoking Status: Never Smoked Chewing Tobacco Use: No Cigar Use: No Alcohol: None Drugs: Denies Home Situation {Lives}: With Family - CARDIAC Hx Hypercholesterolemia: Yes Hx Hypertension: Yes - PULMONARY Hx Asthma: Yes Hx Sleep Apnea: Yes (USES C PAP) - NEUROLOGICAL Hx Neurological Disorder: Yes Hx Vertigo: Yes - HEENT Hx HEENT Problems: No - RENAL Hx Chronic Kidney Disease: No - ENDOCRINE/METABOLIC Hx Endocrine Disorders: No - HEMATOLOGICAL/ONCOLOGICAL Hx Blood Disorders: No - INTEGUMENTARY Hx Dermatological Problems: No - MUSCULOSKELETAL/RHEUMATOLOGICAL Hx Musculoskeletal Disorders: Yes Hx Back Pain: Yes Hx Falls: No Hx Osteoarthritis: Yes - GASTROINTESTINAL Hx Gall Bladder Disease: Yes - GENITOURINARY/GYNECOLOGICAL Hx Genitourinary Disorders: No - PSYCHIATRIC Hx Anxiety: Yes Hx Depression: Yes Hx Substance Use: No - SURGICAL HISTORY Hx Appendectomy: Yes Hx Cholecystectomy: Yes - ANESTHESIA Hx Anesthesia: Yes Hx Anesthesia Reactions: No Hx Malignant Hyperthermia: No Meds Allergies/Adverse Reactions: Allergies Allergy/AdvReac Type Severity Reaction Status Date / Time No Known Allergies Allergy Verified 03/05/15 09:16 Physical Exam - Constitutional Appears: Non-toxic, No Acute Distress - Head Exam Head Exam: ATRAUMATIC, NORMAL INSPECTION - Eye Exam Eye Exam: EOMI, Normal appearance - ENT Exam ENT Exam: Mucous Membranes Moist - Neck Exam Neck exam: Positive for: Full Rom, Normal Inspection, Tenderness (paraspinal). Negative for: Lymphadenopathy - Respiratory Exam Respiratory Exam: Clear to Auscultation Bilateral, NORMAL BREATHING PATTERN - Cardiovascular Exam Cardiovascular Exam: RRR, +S1, +S2. absent: Systolic Murmur - GI/Abdominal Exam GI & Abdominal Exam: Soft. absent: Distended, Tenderness - Extremities Exam Extremities exam: Positive for: normal inspection, pedal pulses present. Negative for: pedal edema, tenderness - Back Exam Back exam: NORMAL INSPECTION - Neurological Exam Neurological exam: Alert, CN II-XII Intact, Normal Gait, Oriented x3 - Psychiatric Exam Psychiatric exam: Normal Affect, Normal Mood - Skin Skin Exam: Dry, Intact, Normal Color, Warm Results - Vital Signs Recent Vital Signs: Last Vital Signs Temp 97.7 F 12/11/18 18:25 Pulse 66 12/11/18 19:45 Resp 16 12/11/18 19:45 BP 139/64 12/11/18 19:45 Pulse Ox 100 12/11/18 19:45 - Labs Result Diagrams: 12/11/18 17:16 12/11/18 17:16 Labs: Laboratory Results - last 24 hr 12/11/18 12/11/18 12/11/18 17:16 17:16 17:16 WBC 6.8 RBC 4.53 Hgb 13.9 Hct 41.9 MCV 92.6 D MCH 30.7 MCHC 33.2 RDW 12.6 Plt Count 332 MPV 8.6 Neut % (Auto) 55.4 Lymph % (Auto) 36.5 [place] % (Auto) 6.1 Eos % (Auto) 1.2 Baso % (Auto) 0.8 Neut # (Auto) 3.8 Lymph # (Auto) 2.5 [place] # (Auto) 0.4 Eos # (Auto) 0.1 Baso # (Auto) 0.1 D-Dimer, Quantitative 482 H Sodium Potassium Chloride Carbon Dioxide Anion Gap BUN Creatinine Est GFR ( Amer) Est GFR (Non-Af Amer) Random Glucose Calcium Total Bilirubin AST ALT Alkaline Phosphatase Troponin I NT-Pro-B Natriuret Pep Total Protein Albumin Globulin Albumin/Globulin Ratio Lipase Urine Color Straw Urine Clarity Clear Urine pH 7.0 Ur Specific [place] 1.005 Urine Protein Negative Urine Glucose (UA) Normal Urine Ketones Negative Urine Blood Negative Urine Nitrate Negative Urine Bilirubin Negative Urine Urobilinogen Normal Ur Leukocyte Esterase Neg Urine RBC (Auto) < 1 Ur Squamous Epith Cells < 1 12/11/18 17:16 WBC RBC Hgb Hct MCV MCH MCHC RDW Plt Count MPV Neut % (Auto) Lymph % (Auto) [place] % (Auto) Eos % (Auto) Baso % (Auto) Neut # (Auto) Lymph # (Auto) [place] # (Auto) Eos # (Auto) Baso # (Auto) D-Dimer, Quantitative Sodium 124 L Potassium 4.4 Chloride 101 Carbon Dioxide 28 Anion Gap -1 L BUN 9 Creatinine 0.7 Est GFR ( Amer) > 60 Est GFR (Non-Af Amer) > 60 Random Glucose 102 Calcium 9.6 Total Bilirubin 0.8 AST 44 H ALT 18 Alkaline Phosphatase 94 Troponin I < 0.0120 NT-Pro-B Natriuret Pep 62.5 Total Protein 8.7 H Albumin 4.8 Globulin 3.9 Albumin/Globulin Ratio 1.2 Lipase 37 Urine Color Urine Clarity Urine pH Ur Specific [place] Urine Protein Urine Glucose (UA) Urine Ketones Urine Blood Urine Nitrate Urine Bilirubin Urine Urobilinogen Ur Leukocyte Esterase Urine RBC (Auto) Ur Squamous Epith Cells - EKG Data EKG Interpreted by: Myself EKG shows normal: Sinus rhythm Rate: Normal Assessment & Plan - Assessment and Plan (Free Text) Assessment: Patient is a 63 yo female with a history of CAD, HTN, HLD, and arthritis who presents with chest pain and headache. Unlikely ACS as pain has been present for 10 days and is reproducible with palpation. Headache appears consistent with tension DANGELO. She was found to be hyponatremic. She appears euvolemic on exam. Plan: Hyponatremia - Na 124 on admission - f/u Serum and urine osm - f/u Urine electrolytes - f/u TSH, free T4 - f/u AM Cortisol - Consider IVF after above labs result - Monitor BMP Chest pain - Trop negative - EKG: normal sinus rhythm - D-dimer elev (482) - BNP wnl (62.5) - Monitor on telemetry Headache - Tylenol 650 mg PO Q6H PRN Coronary artery disease - Heart healthy diet - ASA 81 mg PO daily - Crestor 10 mg PO QHS Hypertension - Monitor vitals Q4H - Lisinopril 5 mg PO daily - Norvasc 5 mg PO daily Hyperlipidemia - f/u Lipid panel - Crestor 10 mg PO QHS Depression and Anxiety - Patient stopped taking Abilify and Prozac 2 months ago - Ativan 1 mg PO QHS PRN Peripheral neuropathy - Gabapentin 400 mg PO TID Allergic rhinitis - Flonase spray daily Ppx: VTE: SCDs, Heparin 5000 units SC Q8H GI: Protonix 40 mg PO daily Code status: full code Case discussed with attending, Dr. Henriquez. <Andrea Henriquez - Last Filed: 12/12/18 07:30> Results - Vital Signs Recent Vital Signs: Last Vital Signs Temp 97.6 F 12/12/18 04:05 Pulse 67 12/12/18 04:06 Resp 20 12/12/18 04:05 BP 105/63 12/12/18 04:05 Pulse Ox 100 12/12/18 04:05 - Labs Result Diagrams: 12/11/18 17:16 12/11/18 17:16 Labs: Laboratory Results - last 24 hr 12/11/18 12/11/18 12/11/18 17:16 17:16 17:16 WBC 6.8 RBC 4.53 Hgb 13.9 Hct 41.9 MCV 92.6 D MCH 30.7 MCHC 33.2 RDW 12.6 Plt Count 332 MPV 8.6 Neut % (Auto) 55.4 Lymph % (Auto) 36.5 [place] % (Auto) 6.1 Eos % (Auto) 1.2 Baso % (Auto) 0.8 Neut # (Auto) 3.8 Lymph # (Auto) 2.5 [place] # (Auto) 0.4 Eos # (Auto) 0.1 Baso # (Auto) 0.1 D-Dimer, Quantitative 482 H Sodium Potassium Chloride Carbon Dioxide Anion Gap BUN Creatinine Est GFR ( Amer) Est GFR (Non-Af Amer) Random Glucose Calcium Total Bilirubin AST ALT Alkaline Phosphatase Troponin I NT-Pro-B Natriuret Pep Total Protein Albumin Globulin Albumin/Globulin Ratio Lipase Urine Color Straw Urine Clarity Clear Urine pH 7.0 Ur Specific [place] 1.005 Urine Protein Negative Urine Glucose (UA) Normal Urine Ketones Negative Urine Blood Negative Urine Nitrate Negative Urine Bilirubin Negative Urine Urobilinogen Normal Ur Leukocyte Esterase Neg Urine RBC (Auto) < 1 Ur Squamous Epith Cells < 1 Urine Osmolality Ur Random Sodium Ur Random Potassium 12/11/18 12/12/18 17:16 06:32 WBC RBC Hgb Hct MCV MCH MCHC RDW Plt Count MPV Neut % (Auto) Lymph % (Auto) [place] % (Auto) Eos % (Auto) Baso % (Auto) Neut # (Auto) Lymph # (Auto) [place] # (Auto) Eos # (Auto) Baso # (Auto) D-Dimer, Quantitative Sodium 124 L Potassium 4.4 Chloride 101 Carbon Dioxide 28 Anion Gap -1 L BUN 9 Creatinine 0.7 Est GFR ( Amer) > 60 Est GFR (Non-Af Amer) > 60 Random Glucose 102 Calcium 9.6 Total Bilirubin 0.8 AST 44 H ALT 18 Alkaline Phosphatase 94 Troponin I < 0.0120 NT-Pro-B Natriuret Pep 62.5 Total Protein 8.7 H Albumin 4.8 Globulin 3.9 Albumin/Globulin Ratio 1.2 Lipase 37 Urine Color Urine Clarity Urine pH Ur Specific [place] Urine Protein Urine Glucose (UA) Urine Ketones Urine Blood Urine Nitrate Urine Bilirubin Urine Urobilinogen Ur Leukocyte Esterase Urine RBC (Auto) Ur Squamous Epith Cells Urine Osmolality 423 Ur Random Sodium 101 Ur Random Potassium 23.9 Attending/Attestation - Attestation I have personally seen and examined this patient.: Yes I have fully participated in the care of the patient.: Yes I have reviewed all pertinent clinical information: Yes Notes (Text): 12/12/18 07:28 Assessment/plan * CP repoducible likely costocondral, negative ekg, trop, 10 day history, h/o single vessel CAD in 2017 cath * Hyponatremia, clinically euvolemic, am urine sodium and osm suggest SIADH, but am labs cortisol, tsh pending, will temporary fluid restrict, ? etiology
--- NOTE | 2018-12-12 07:11 | CP.PCM.PN ---
Subjective - Date & Time of Evaluation Date of Evaluation: 12/12/18 Time of Evaluation: 07:11 - Subjective Subjective: Progress Note for Hospitalist service Patient seen and examined at Objective - Vital Signs/Intake and Output Vital Signs (last 24 hours): Temp Pulse Resp BP Pulse Ox 97.6 F 67 20 105/63 100 12/12/18 04:05 12/12/18 04:06 12/12/18 04:05 12/12/18 04:05 12/12/18 04:05 Intake and Output: 12/12/18 12/12/18 06:59 18:59 Intake Total 120 Balance 120 - Medications Medications: Current Medications Acetaminophen (Tylenol 325mg Tab) 650 mg PO Q6 PRN PRN Reason: Pain, moderate (4-7) Last Admin: 12/12/18 00:22 Dose: 650 mg Amlodipine Besylate (Norvasc) 5 mg PO DAILY [facility] Aspirin (Ecotrin) 81 mg PO DAILY [facility] Fluticasone Propionate (Flonase) 1 spr NS DAILY [facility] Gabapentin (Neurontin) 400 mg PO TID [facility] Heparin Sodium (Porcine) (Heparin) 5,000 units SC Q8 [facility] Last Admin: 12/12/18 06:11 Dose: 5,000 units Home Med (Olopatadine Hcl [Pataday]) 2.5 ml OP DAILY [facility] Lisinopril (Zestril) 5 mg PO DAILY [facility] Lorazepam (Ativan) 1 mg PO HS PRN PRN Reason: Anxiety Pantoprazole Sodium (Protonix Ec Tab) 40 mg PO DAILY [facility] Rosuvastatin Calcium (Crestor) 10 mg PO HS [facility]IE - Labs Labs: 12/11/18 17:16 12/11/18 17:16
[2018-12-12 07:52] LABS: BASO % 0.7 % (0.0-2.0); EOS # 0.1 K/uL (0.0-0.7); EOS % 1.5 % (0.0-4.0); HEMOGLOBIN 12.8 g/dL (11.0-16.0); LYMPH # 2.6 K/uL (1.0-4.3); LYMPH % 49.5 % (20.0-40.0); MEAN CELL VOLUME 93.6 fL (81.0-99.0); MEAN CORPUSCULAR HEMOGLOBIN 30.8 pg (27.0-31.0); MONO # 0.3 K/uL (0.0-0.8); MONO % 6.1 % (0.0-10.0); NEUT # 2.3 K/uL (1.8-7.0); NEUT % 42.2 % (50.0-75.0); NRBC % 0.2 % (0.0-2.0); RBC 4.16 Mil/uL (3.80-5.20); RED CELL DISTRIBUTION WIDTH 12.6 % (11.5-14.5); WHITE BLOOD COUNT 5.3 K/uL (4.8-10.8)
[2018-12-12 08:21] LABS: ALB/GLOB RATIO 1.3 (1.0-2.1); ALBUMIN 3.9 g/dL (3.5-5.0); ALT/SGPT 26 U/L (9-52); AST/SGOT 52 U/L (14-36); BLOOD UREA NITROGEN 8 mg/dL (7-17); CALCIUM 9.1 mg/dl (8.6-10.4); GFR NON-AFRICAN AMERICAN > 60; HDL CHOLESTEROL 54 mg/dL (30-70)
[2018-12-12 08:25] LABS: LDL CHOLESTEROL 69 mg/dL (0-129)
[2018-12-12 08:44] VITALS: O2SAT 99
[2018-12-12] MEDS ORDERED: OLOPATADINE HCL OP SCH (10:00)
[2018-12-12] MEDS ORDERED: Pantoprazole 40 mg EC Tab PO SCH (10:00)
[2018-12-12] MEDS ORDERED: Fluticasone Nasal 50 mcg/Spray NS SCH (10:00)
--- NOTE | 2018-12-12 15:40 | CP.PCM.DIS ---
Provider - Provider Date of Admission: 12/11/18 19:13 Attending physician: [facility] Course - Lab Results Lab Results: Most Recent Lab Values WBC 5.3 K/uL (4.8-10.8) 12/12/18 07:41 RBC 4.16 Mil/uL (3.80-5.20) 12/12/18 07:41 Hgb 12.8 g/dL (11.0-16.0) 12/12/18 07:41 Hct 38.9 % (34.0-47.0) 12/12/18 07:41 MCV 93.6 fL (81.0-99.0) 12/12/18 07:41 MCH 30.8 pg (27.0-31.0) 12/12/18 07:41 MCHC 33.0 g/dL (33.0-37.0) 12/12/18 07:41 RDW 12.6 % (11.5-14.5) 12/12/18 07:41 Plt Count 308 K/uL (130-400) 12/12/18 07:41 MPV 9.0 fL (7.2-11.7) 12/12/18 07:41 Neut % (Auto) 42.2 % (50.0-75.0) L 12/12/18 07:41 Lymph % (Auto) 49.5 % (20.0-40.0) H 12/12/18 07:41 [place] % (Auto) 6.1 % (0.0-10.0) 12/12/18 07:41 Eos % (Auto) 1.5 % (0.0-4.0) 12/12/18 07:41 Baso % (Auto) 0.7 % (0.0-2.0) 12/12/18 07:41 Neut # (Auto) 2.3 K/uL (1.8-7.0) 12/12/18 07:41 Lymph # (Auto) 2.6 K/uL (1.0-4.3) 12/12/18 07:41 [place] # (Auto) 0.3 K/uL (0.0-0.8) 12/12/18 07:41 Eos # (Auto) 0.1 K/uL (0.0-0.7) 12/12/18 07:41 Baso # (Auto) 0.0 K/uL (0.0-0.2) 12/12/18 07:41 D-Dimer, Quantitative 482 ng/mlDDU (0-243) H 12/11/18 17:16 Sodium 140 mmol/L (132-148) 12/12/18 07:41 Potassium 4.2 mmol/L (3.6-5.2) 12/12/18 07:41 Chloride 107 mmol/L (98-107) 12/12/18 07:41 Carbon Dioxide 28 mmol/L (22-30) 12/12/18 07:41 Anion Gap 9 (10-20) L 12/12/18 07:41 BUN 8 mg/dL (7-17) 12/12/18 07:41 Creatinine 0.7 mg/dL (0.7-1.2) 12/12/18 07:41 Est GFR ( Amer) > 60 12/12/18 07:41 Est GFR (Non-Af Amer) > 60 12/12/18 07:41 Random Glucose 88 mg/dL (65-105) 12/12/18 07:41 Serum Osmolality 300 mosm/kg (272-300) 12/12/18 07:41 Calcium 9.1 mg/dl (8.6-10.4) 12/12/18 07:41 Phosphorus 4.1 mg/dL (2.5-4.5) 12/12/18 07:41 Magnesium 2.0 mg/dL (1.6-2.3) 12/12/18 07:41 Total Bilirubin 0.8 mg/dL (0.2-1.3) 12/12/18 07:41 AST 52 U/L (14-36) H 12/12/18 07:41 ALT 26 U/L (9-52) 12/12/18 07:41 Alkaline Phosphatase 88 U/L (38-126) 12/12/18 07:41 Troponin I < 0.0120 ng/mL (0.00-0.120) 12/11/18 17:16 NT-Pro-B Natriuret Pep 62.5 pg/mL (0-900) 12/11/18 17:16 Total Protein 7.0 g/dL (6.3-8.3) 12/12/18 07:41 Albumin 3.9 g/dL (3.5-5.0) 12/12/18 07:41 Globulin 3.1 gm/dL (2.2-3.9) 12/12/18 07:41 Albumin/Globulin Ratio 1.3 (1.0-2.1) 12/12/18 07:41 Triglycerides 67 mg/dL (0-149) 12/12/18 07:41 Cholesterol 147 mg/dL (0-199) 12/12/18 07:41 LDL Cholesterol Direct 69 mg/dL (0-129) 12/12/18 07:41 HDL Cholesterol 54 mg/dL (30-70) 12/12/18 07:41 Lipase 37 U/L (23-300) 12/11/18 17:16 Free T4 1.16 ng/dL (0.78-2.19) 12/12/18 07:41 TSH 3rd Generation 1.29 mIU/L (0.46-4.68) 12/12/18 07:41 Cortisol AM Sample 10.2 ug/dL (4.46-22.7) 12/12/18 07:41 Urine Color Straw (YELLOW) 12/11/18 17:16 Urine Clarity Clear (Clear) 12/11/18 17:16 Urine pH 7.0 (5.0-8.0) 12/11/18 17:16 Ur Specific [place] 1.005 (1.003-1.030) 12/11/18 17:16 Urine Protein Negative mg/dL (NEGATIVE) 12/11/18 17:16 Urine Glucose (UA) Normal mg/dL (Normal) 12/11/18 17:16 Urine Ketones Negative mg/dL (NEGATIVE) 12/11/18 17:16 Urine Blood Negative (NEGATIVE) 12/11/18 17:16 Urine Nitrate Negative (NEGATIVE) 12/11/18 17:16 Urine Bilirubin Negative (NEGATIVE) 12/11/18 17:16 Urine Urobilinogen Normal mg/dL (0.2-1.0) 12/11/18 17:16 Ur Leukocyte Esterase Neg Estefany/uL (Negative) 12/11/18 17:16 Urine RBC (Auto) < 1 /hpf (0-3) 12/11/18 17:16 Ur Squamous Epith Cells < 1 /hpf (0-5) 12/11/18 17:16 Urine Osmolality 423 mosm/kg (300-1000) 12/12/18 06:32 Ur Random Sodium 101 mmol/L 12/12/18 06:32 Ur Random Potassium 23.9 mmol/L 12/12/18 06:32 Discharge Exam - Head Exam Head Exam: ATRAUMATIC, NORMAL INSPECTION Discharge Plan - Discharge Medications Prescriptions: amLODIPine [Norvasc] 5 mg PO DAILY #30 tab Aspirin [Ecotrin] 81 mg PO DAILY #30 tabec Atorvastatin [Lipitor] 20 mg PO DAILY #30 tab Gabapentin 400 mg PO TID #90 capsule Lisinopril [Zestril] 5 mg PO DAILY #30 tab - Follow Up Plan Condition: STABLE Disposition: HOME/ ROUTINE Additional Instructions: Patient should follow up with PMD Dr. Chiu and Cardiology Dr. Arora in 1 to 2 weeks. Please return to the ED if you experience chest pain, shortness of breath or palpitations. Referrals: Uriah Chiu MD [Staff Provider] - Dejon Arora MD [Staff Provider] -
--- NOTE | 2018-12-12 15:45 | CP.PCM.DIS ---
Provider - Provider Date of Admission: 12/11/18 19:13 Attending physician: Eduardo Schrader Time Spent in preparation of Discharge (in minutes): 30 Hospital Course - Lab Results Lab Results: Most Recent Lab Values WBC 5.3 K/uL (4.8-10.8) 12/12/18 07:41 RBC 4.16 Mil/uL (3.80-5.20) 12/12/18 07:41 Hgb 12.8 g/dL (11.0-16.0) 12/12/18 07:41 Hct 38.9 % (34.0-47.0) 12/12/18 07:41 MCV 93.6 fL (81.0-99.0) 12/12/18 07:41 MCH 30.8 pg (27.0-31.0) 12/12/18 07:41 MCHC 33.0 g/dL (33.0-37.0) 12/12/18 07:41 RDW 12.6 % (11.5-14.5) 12/12/18 07:41 Plt Count 308 K/uL (130-400) 12/12/18 07:41 MPV 9.0 fL (7.2-11.7) 12/12/18 07:41 Neut % (Auto) 42.2 % (50.0-75.0) L 12/12/18 07:41 Lymph % (Auto) 49.5 % (20.0-40.0) H 12/12/18 07:41 [place] % (Auto) 6.1 % (0.0-10.0) 12/12/18 07:41 Eos % (Auto) 1.5 % (0.0-4.0) 12/12/18 07:41 Baso % (Auto) 0.7 % (0.0-2.0) 12/12/18 07:41 Neut # (Auto) 2.3 K/uL (1.8-7.0) 12/12/18 07:41 Lymph # (Auto) 2.6 K/uL (1.0-4.3) 12/12/18 07:41 Clare # (Auto) 0.3 K/uL (0.0-0.8) 12/12/18 07:41 Eos # (Auto) 0.1 K/uL (0.0-0.7) 12/12/18 07:41 Baso # (Auto) 0.0 K/uL (0.0-0.2) 12/12/18 07:41 D-Dimer, Quantitative 482 ng/mlDDU (0-243) H 12/11/18 17:16 Sodium 140 mmol/L (132-148) 12/12/18 07:41 Potassium 4.2 mmol/L (3.6-5.2) 12/12/18 07:41 Chloride 107 mmol/L (98-107) 12/12/18 07:41 Carbon Dioxide 28 mmol/L (22-30) 12/12/18 07:41 Anion Gap 9 (10-20) L 12/12/18 07:41 BUN 8 mg/dL (7-17) 12/12/18 07:41 Creatinine 0.7 mg/dL (0.7-1.2) 12/12/18 07:41 Est GFR ( Amer) > 60 12/12/18 07:41 Est GFR (Non-Af Amer) > 60 12/12/18 07:41 Random Glucose 88 mg/dL (65-105) 12/12/18 07:41 Serum Osmolality 300 mosm/kg (272-300) 12/12/18 07:41 Calcium 9.1 mg/dl (8.6-10.4) 12/12/18 07:41 Phosphorus 4.1 mg/dL (2.5-4.5) 12/12/18 07:41 Magnesium 2.0 mg/dL (1.6-2.3) 12/12/18 07:41 Total Bilirubin 0.8 mg/dL (0.2-1.3) 12/12/18 07:41 AST 52 U/L (14-36) H 12/12/18 07:41 ALT 26 U/L (9-52) 12/12/18 07:41 Alkaline Phosphatase 88 U/L (38-126) 12/12/18 07:41 Troponin I < 0.0120 ng/mL (0.00-0.120) 12/11/18 17:16 NT-Pro-B Natriuret Pep 62.5 pg/mL (0-900) 12/11/18 17:16 Total Protein 7.0 g/dL (6.3-8.3) 12/12/18 07:41 Albumin 3.9 g/dL (3.5-5.0) 12/12/18 07:41 Globulin 3.1 gm/dL (2.2-3.9) 12/12/18 07:41 Albumin/Globulin Ratio 1.3 (1.0-2.1) 12/12/18 07:41 Triglycerides 67 mg/dL (0-149) 12/12/18 07:41 Cholesterol 147 mg/dL (0-199) 12/12/18 07:41 LDL Cholesterol Direct 69 mg/dL (0-129) 12/12/18 07:41 HDL Cholesterol 54 mg/dL (30-70) 12/12/18 07:41 Lipase 37 U/L (23-300) 12/11/18 17:16 Free T4 1.16 ng/dL (0.78-2.19) 12/12/18 07:41 TSH 3rd Generation 1.29 mIU/L (0.46-4.68) 12/12/18 07:41 Cortisol AM Sample 10.2 ug/dL (4.46-22.7) 12/12/18 07:41 Urine Color Straw (YELLOW) 12/11/18 17:16 Urine Clarity Clear (Clear) 12/11/18 17:16 Urine pH 7.0 (5.0-8.0) 12/11/18 17:16 Ur Specific [place] 1.005 (1.003-1.030) 12/11/18 17:16 Urine Protein Negative mg/dL (NEGATIVE) 12/11/18 17:16 Urine Glucose (UA) Normal mg/dL (Normal) 12/11/18 17:16 Urine Ketones Negative mg/dL (NEGATIVE) 12/11/18 17:16 Urine Blood Negative (NEGATIVE) 12/11/18 17:16 Urine Nitrate Negative (NEGATIVE) 12/11/18 17:16 Urine Bilirubin Negative (NEGATIVE) 12/11/18 17:16 Urine Urobilinogen Normal mg/dL (0.2-1.0) 12/11/18 17:16 Ur Leukocyte Esterase Neg [place]efany/uL (Negative) 12/11/18 17:16 Urine RBC (Auto) < 1 /hpf (0-3) 12/11/18 17:16 Ur Squamous Epith Cells < 1 /hpf (0-5) 12/11/18 17:16 Urine Osmolality 423 mosm/kg (300-1000) 12/12/18 06:32 Ur Random Sodium 101 mmol/L 12/12/18 06:32 Ur Random Potassium 23.9 mmol/L 12/12/18 06:32 - Hospital Course Hospital Course: On admission: Patient is a 63 yo female with a history of CAD, HTN, HLD, and arthritis who presents with chest pain. Patient states that she started to feel the chest pain gradually when she was sitting down approximately 10 days ago. She says the pain feels like a pressure on the left side of her chest and radiates up to her R neck/jaw. She says the pain is fairly constant and is associated with palpitations. Patient says she felt anxious yesterday and was taking her BP at home. She became concerned that she was getting different values and feels that it is not well controlled. She reports SBP ranged from 100-150. She also complains of DANGELO that started 10 days ago as well. DANGELO is located in the frontal and occipital regions bilaterally. She has taken Advil which relieves the DANGELO and chest pain somewhat. She also experienced nausea with mild abdominal pain today but no vomiting. She says she has been drinking and eating normally. She endorses urinary frequency but denies dysuria or polydipsia. Patient says she has had episodes like this before. 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 Hospital course: Patient was admitted for complaints of chest pain and headache. On initial examination, her pain was initially reproducible to palpation. Patient's chest, neck and headache resolved the following day. Initial labwork revealed low serum sodium level 124 , however repeat serum sodium 140. Urine electrolytes, TSH, T4, AM cortisol were within normal limits Cardiac enzymes were negative. EKG was normal sinus rhythm. CXR revealed no active disease. For patient's hypertension, patient was treated with Lisinopril and Norvasc. Given history of hyperlipidemia, she was given Crestor 10mg. She was treated with Aspirin for her history of CAD. Patient reportedly stopped taking Abilify and Prozac 2 months ago for history of depression and anxiety. Upon discharge, patient stated that her chest pain, neck pain and headache had completely resolved. Discharge instructions: Patient should follow up with PMD Dr. Chiu and Cardiology Dr. Arora in 1 to 2 weeks. Please return to the ED if you experience chest pain, shortness of breath or palpitations. El paciente debe hacer un seguimiento con PMD Dr. Chiu y Cardiology Dr. Arora en 1 a 2 semanas. Regrese al servicio de urgencias si experimenta dolor en el pecho, dificultad para respirar o palpitaciones. Discharge Exam - Head Exam Head Exam: ATRAUMATIC, NORMAL INSPECTION - Eye Exam Eye Exam: EOMI, PERRL - ENT Exam ENT Exam: Mucous Membranes Moist - Neck Exam Neck exam: Full Rom - Respiratory Exam Respiratory Exam: Clear to PA & Lateral, NORMAL BREATHING PATTERN. absent: Rales, Rhonchi, Wheezes, Respiratory Distress, Stridor - Cardiovascular Exam Cardiovascular Exam: REGULAR RHYTHM, +S1, +S2. absent: Gallop, Rubs, Systolic Murmur - GI/Abdominal Exam GI & Abdominal Exam: Normal Bowel Sounds, Soft. absent: Distended, Firm, Guarding, Tenderness - Extremities Exam Extremities exam: pedal pulses present Additional comments: no calf tenderness, no pedal edema - Back Exam Back exam: absent: CVA tenderness (L), CVA tenderness (R), rash noted - Neurological Exam Neurological exam: Alert, Oriented x3, Reflexes Normal - Psychiatric Exam Psychiatric exam: Normal Affect, Normal Mood - Skin Skin Exam: Dry, Intact, Warm Discharge Plan - Discharge Medications Prescriptions: amLODIPine [Norvasc] 5 mg PO DAILY #30 tab Aspirin [Ecotrin] 81 mg PO DAILY #30 tabec Atorvastatin [Lipitor] 20 mg PO DAILY #30 tab Gabapentin 400 mg PO TID #90 capsule Lisinopril [Zestril] 5 mg PO DAILY #30 tab - Follow Up Plan Condition: STABLE Disposition: HOME/ ROUTINE Instructions: DASH Diet, Chest Pain (DC), Low Salt Diet, Hyponatremia (DC), Amlodipine, Aspirin, Atorvastatin, Gabapentin, Lisinopril, Hypertension (DC) Additional Instructions: Patient should follow up with PMD Dr. Chiu and Cardiology Dr. Arora in 1 to 2 weeks. Please return to the ED if you experience chest pain, shortness of breath or palpitations. El paciente debe hacer un seguimiento con PMD Dr. Chiu y Cardiology Dr. Arora en 1 a 2 semanas. Regrese al servicio de urgencias si experimenta dolor en el pecho, dificultad para respirar o palpitaciones. Referrals: Uriah Chiu MD [Staff Provider] - Dejon Arora MD [Staff Provider] -
[2018-12-12 16:38] VITALS: BP 107/72; PULSE 76; RESP 20; TEMP 98.4
--- NOTE | 2018-12-12 20:19 | CARD ---
APPROVED REPORT Date of service: 12/11/2018 EKG Measurement Heart [id number] <Conclusion> Normal sinus rhythm Cannot rule out Anterior infarct, age undetermined Abnormal ECG
== END 2018-12-12 17:55 | disposition home or self-care (01) ==
LOC: C.ER 15:45 → C.9E 19:13 → C.6T 20:46
PROVIDERS: ADMIT Hospitalist; ATTEND Hospitalist
DX: R07.9 Chest pain, unspecified (principal); E87.1 Hypo-osmolality and hyponatremia; G44.209 Tension-type headache, unspecified, not intractable; I10 Essential (primary) hypertension; E78.00 Pure hypercholesterolemia, unspecified; I25.10 Atherosclerotic heart disease of native coronary artery without angina pectoris; E78.5 Hyperlipidemia, unspecified; G47.30 Sleep apnea, unspecified; M19.90 Unspecified osteoarthritis, unspecified site; F32.9 Major depressive disorder, single episode, unspecified; F41.9 Anxiety disorder, unspecified; G62.9 Polyneuropathy, unspecified
CPT/HCPCS: 36415; 71046; 80053; 80061; 81001; 82436; 82533; 83690; 83735; 83880; 83930; 83935; 84100; 84132; 84300; 84439; 84443; 84484; 85025; 85378; 93005; 99285; G0378; J1644